=== PATIENT | female | born 1945 | race Caucasian/White ===

== ENCOUNTER → 2016-11-18 | Outpatient (CLI) | payer OTHER ==
--- NOTE | 2016-11-18 15:36 | DX ---
DEXA Bone Mineral Densitometry Clinical Indications: Postmenopausal, follow-up osteopenia, post hysterectomy, back pain, HRT x12 ye ars, screening for osteoporosis Comparison: May 14, 2013 (osteopenia) Technique: Bone Mineral Densitometry (BMD) by Dual Energy X-Ray Absorptiometry (DEXA) was performed utilizing the Lycera scanner. The lumbar spine was evaluated in the AP projection. The bilat eral hips and forearm were evaluated in the AP projection. Vertebral fracture assessment was also pe rformed. AP Lumbar Spine: The L1, L2, L3 and L4 vertebral bodies were evaluated. BMD: 1.013 gm/cm2 T-score: -1.5 SD Z-score: 0.5 SD No significant change. AP Left Hip: Total BMD: 0.787 gm/cm2 T-score: -1.7 SD Z-score: 0 SD No significant change. AP Right Hip: Neck BMD: 0.788 gm/cm2 T-score: -1.8 SD Z-score: 0.2 SD No significant change in total BMD AP Left Forearm, 10/19: BMD: 0.703 gm/cm2 T-score: -2.0 SD Z-score: 0 SD No significant change. Vertebral Fracture Assessment: No significant fracture deformity. No prevertebral aortic calcificati on, significant marginal bone spurring, facet arthrosis, or intrinsic vertebral body sclerosis that would effect the accuracy of the lumbar spine BMD measurement. Conclusion: Considering the lowest measured site, the patient has low bone density. The ten year FRAX risk for any major osteoporotic fracture is 10% and for a hip fracture is 2.1%. Any bone loss in this patient is probably related to aging or estrogen deficiency. To prevent osteoporosis and to promote the patient's bone density, the following recommendations shou ld be considered: 1. Pursue a regular regimen of weightbearing and muscle strengthening exercises in order to reduce t he risk of falls and fractures (as tolerated by the patient's general medical condition). 2. Ensure that daily dietary calcium uptake is maximized. 3. Consider checking the serum vitamin D level. Ensure that intake of vitamin D is 800 IU per day (f or ages 71 and older). 4. Consider follow-up DEXA scan in 3-4years to assess the rate of bone loss in this patient.
== END ==
LOC: FIMAGING 13:02
PROVIDERS: ATTEND Internal Medicine
DX: M85.80 Other specified disorders of bone density and structure, unspecified site (principal); E78.00 Pure hypercholesterolemia, unspecified; G47.33 Obstructive sleep apnea (adult) (pediatric); K31.9 Disease of stomach and duodenum, unspecified; M54.40 Lumbago with sciatica, unspecified side; R06.02 Shortness of breath; R07.2 Precordial pain; R53.83 Other fatigue

== ENCOUNTER → 2016-12-14 | Outpatient (CLI) | payer OTHER | LOC: FIMAGING 11:37 | PROVIDERS: ATTEND Internal Medicine | DX: J42 Unspecified chronic bronchitis (principal); K21.9 Gastro-esophageal reflux disease without esophagitis ==

== ENCOUNTER → 2017-02-16 | Outpatient (CLI) | payer OTHER | LOC: CIMAGING 07:54 | PROVIDERS: ATTEND Internal Medicine | DX: R10.10 Upper abdominal pain, unspecified (principal); R63.4 Abnormal weight loss; K76.89 Other specified diseases of liver; Z87.442 Personal history of urinary calculi | CPT/HCPCS: 76700-PO ==

== ENCOUNTER → 2017-03-18 | Outpatient (CLI) | payer OTHER | LOC: FIMAGING 13:44 | PROVIDERS: ATTEND Internal Medicine | DX: Z12.31 Encounter for screening mammogram for malignant neoplasm of breast (principal); Z80.3 Family history of malignant neoplasm of breast | CPT/HCPCS: G0202 ==

== ENCOUNTER 2017-08-26 14:19 | Observation (INO) | payer OTHER ==
[2017-08-26 14:59] LABS: % IMMATURE GRANULYOCYTES 0.9 % (0.0-1.1); ABSOLUTE IMMATURE GRANULOCYTES 0.06 10^3/uL (0.00-0.10); ADD DIFF? NO; ADD MORPH? NO; ADD SCAN? NO; ATYPICAL LYMPHOCYTE FLAG 0 (0-99); FRAGMENT RBC FLAG 0 (0-99); HEMOGLOBIN 13.3 g/dL (12.6-16.3); LEFT SHIFT FLG 0 (0-99); LIPEMIA HEMOLYSIS FLAG 90 (0-99); MEAN CELL HEMOGLOBIN 31.1 pg (27.9-34.1); MEAN CELL HEMOGLOBIN CONCENTR. 34.1 g/dL (32.4-36.7); MEAN CELL VOLUME 91.1 fL (81.5-99.8); MEAN PLATELET VOLUME 9.8 fL (8.7-11.7); PLATELET CLUMPS FLAG 0 (0-99); PLATELET COUNT 223 10^3/uL (150-400); RED BLOOD CELL COUNT 4.28 10^6/uL (4.18-5.33); RED CELL DISTRIBUTION WIDTH 12.3 % (11.5-15.2)
--- NOTE | 2017-08-26 14:59 | EDPHY ---
H & P Time Seen by Provider: 08/26/17 14:41 HPI/ROS: CHIEF COMPLAINT: Trouble speaking and right hand numbness HISTORY OF PRESENT ILLNESS: Patient was at lunch with her and they were talking about changing the die mechanic at 2:00 p.m. today when she had sudden onset of difficulty speaking and right hand numbness. The says she "was not fluent "with her speech and she describes having difficulty thinking of words to say. Symptoms are currently very mild but the numbness in her hand has completely resolved, and her difficulty speaking is almost completely resolved. Not associated with headache or vertigo or dizziness or trouble walking. REVIEW OF SYSTEMS: Eye: no change in vision ENT: no sore throat Cardiac: no chest pain or syncope Pulmonary: no cough or SOB Abdomen: no vomiting, diarrhea, abdominal pain Musculoskeletal: no back pain or neck pain Skin: no rash Neuro: HPI Constitutional: no fever : no urinary symptoms A comprehensive 10 point review of systems is otherwise negative aside from elements mentioned in the history of present illness. PAST MEDICAL HISTORY: GERD and high cholesterol, celiac Social history: With , no alcohol General Appearance: Alert and conversant, cooperative. Eyes: No scleral icterus. Extraocular motion intact and pupils equal and reactive. ENT, Mouth: Normal mucous membranes. Respiratory: Normal respiratory effort, breath sounds equal, lungs are clear to auscultation. Cardiovascular: Regular rate and rhythm. Gastrointestinal: Abdomen is soft and non tender. Neurological: Alert and oriented x3. Patient can name a pen and eyeglasses and has fluent speech. 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 Face symmetric, normal movement and sensation in all extremities. Negative for pronator drift, normal [id number] bilaterally. Skin: Warm and dry, no rashes. Musculoskeletal: No peripheral edema and no joint swelling. Psychiatric: Not agitated. Emergency Department course/MDM: Patient's symptoms have almost completely resolved, she has market rapid improvement and I think at this time I think it is not appropriate clinically for her to be a stroke alert as the potential benefit of Activase is outweighed by potential harm in a patient with rapid improvement of symptoms. CT, CT angiography, EKG, admission for TIA evaluation. CT and CTA negative for large vessel occlusion acute ischemia cranial mass or bleeding per Dr. Whatley. Discussed with Dr. Peralta at 3:58 p.m. Smoking Status: Never smoked Constitutional: Initial Vital Signs Temperature (C) 36.8 C 08/26/17 14:23 Heart Rate 93 08/26/17 14:23 Respiratory Rate 16 08/26/17 14:23 Blood Pressure 146/68 H 08/26/17 14:23 O2 Sat (%) 98 08/26/17 14:23 O2 Delivery Mode Room Air Allergies/Adverse Reactions: codeine Allergy (Verified 08/27/14 21:26) erythromycin base [Erythromycin Base] Allergy (Verified 08/27/14 12:52) gluten Allergy (Verified 08/26/17 14:22) Sulfa (Sulfonamide Antibiotics) Allergy (Verified 01/23/16 23:41) biactin Allergy (Uncoded 01/23/16 23:41) Home Medications: Medication Instructions Recorded Acetaminophen/ASA/Caffeine 1 tab PO DAILY PRN 08/27/14 [Excedrin Tablet (*)] Calcium Carb W/Vit D [Calcium Carb 500 mg PO DAILY 08/27/14 W/Vit D 500/200 (*)] Diazepam [Valium 5 MG (*)] 2.5 - 5 mg PO DAILY PRN 08/27/14 Estradiol [Estrace] 0.5 mg PO HS 08/27/14 Methylcellulose [Citrucel] 500 mg PO DAILY 08/27/14 Multivitamins [Multivitamin (*)] 1 tab PO DAILY 08/27/14 Omeprazole [Prilosec 20 mg] 20 mg PO HS 08/27/14 Atorvastatin Calcium [Lipitor 10 10 mg PO HS 01/24/16 mg (*)] Medical Decision Making - Diagnostics EKG Interpretation: 12-lead EKG interpreted by me; official reading is in trace master. My interpretation is sinus rhythm, no ischemic changes. Imaging Results: Imaging Impressions Head CT 08/26/17 14:51 Impression: 1. No significant intracranial abnormality seen. If symptoms worsen, additional imaging may be necessary. Findings discussed with SJ AARON at 1545 hour, 08/26/2017. Head CTA 08/26/17 14:52 Impression: 1. Normal CT angiogram of the neck. 2. Normal CT angiogram of the [place] with normal variation, as detailed above. 3. Mild focal narrowing left proximal posterior cerebral artery of questionable clinical significance. Note: All calculations were performed using NASCET criteria. Findings discussed with Sj Aaron M.D. at 15:45 hour, 08/26/2017. Neck CTA 08/26/17 14:[address]ression: [address] Normal [address] angiogram of the neck. 2. Normal CT angiogram of the [place] with normal variation, as detailed above. 3. Mild focal narrowing left proximal posterior cerebral artery of questionable clinical significance. Note: All calculations were performed using NASCET criteria. Findings discussed with Sj Aaron M.D. at 15:45 hour, 08/26/2017. Differential Diagnosis: Differential considered including but not limited to intracranial bleed, ischemic stroke, seizure, metabolic abnormality, TIA - Data Points Laboratory Results: Laboratory Results 08/26/17 14:45 08/26/17 14:45 08/26/17 08/26/17 08/26/17 14:45 14:45 14:45 WBC 6.66 10^3/uL 10^3/uL (3.80-9.50) RBC 4.28 10^6/uL 10^6/uL (4.18-5.33) Hgb 13.3 g/dL g/dL (12.6-16.3) Hct 39.0 % % (38.0-47.0) MCV 91.1 fL fL (81.5-99.8) MCH 31.1 pg pg (27.9-34.1) MCHC 34.1 g/dL g/dL (32.4-36.7) RDW 12.3 % % (11.5-15.2) Plt Count 223 10^3/uL 10^3/uL (150-400) MPV 9.8 fL fL (8.7-11.7) Neut % (Auto) 51.2 % % (39.3-74.2) Lymph % (Auto) 32.9 % % (15.0-45.0) [place] % (Auto) 7.7 % % (4.5-13.0) Eos % (Auto) 6.8 % % (0.6-7.6) Baso % (Auto) 0.5 % % (0.3-1.7) Nucleat RBC Rel Count 0.0 % % (0.0-0.2) Absolute Neuts (auto) 3.42 10^3/uL 10^3/uL (1.70-6.50) Absolute Lymphs (auto) 2.19 10^3/uL 10^3/uL (1.00-3.00) Absolute Monos (auto) 0.51 10^3/uL 10^3/uL (0.30-0.80) Absolute Eos (auto) 0.45 10^3/uL H 10^3/uL (0.03-0.40) Absolute Basos (auto) 0.03 10^3/uL 10^3/uL (0.02-0.10) Absolute Nucleated RBC 0.00 10^3/uL 10^3/uL (0-0.01) Immature Gran % 0.9 % % (0.0-1.1) Immature Gran # 0.06 10^3/uL 10^3/uL (0.00-0.10) PT 12.9 SEC SEC (12.0-15.0) INR 0.98 (0.83-1.16) Sodium 141 mEq/L mEq/L (134-144) Potassium 3.3 mEq/L L mEq/L (3.5-5.2) Chloride 104 mEq/L mEq/L (97-110) Carbon Dioxide 23 mEq/l mEq/l (22-31) Anion Gap 14 mEq/L mEq/L (8-16) BUN 14 mg/dL mg/dL (7-23) Creatinine 1.0 mg/dL mg/dL (0.6-1.0) Estimated GFR 55 Glucose 111 mg/dL H mg/dL (70-100) Calcium 9.9 mg/dL mg/dL (8.5-10.4) Troponin I < 0.012 ng/mL ng/mL (0.000-0.034) Medications Given: Acetaminophen (Tylenol) 650 mg PO Q4HRS PRN PRN Reason: Pain, Mild/Fever, Can Take PO Stop: 18 16:05 Last Admin: 08/26/17 18:24 Dose: 650 mg Discontinued Medications Potassium Chloride (Klor-Con) 20 meq PO ONCE ONE Stop: 08/26/17 18:46 Last Admin: 08/26/17 18:59 Dose: 20 meq Departure - Departure Disposition: [facility] Clinical Impression: Transient cerebral ischemia Qualifiers: Transient cerebral ischemia type: unspecified Qualified Code(s): G45.9 - Transient cerebral ischemic attack, unspecified Condition: Good
[2017-08-26 15:04] LABS: ANION GAP 14 mEq/L (8-16); CALCIUM 9.9 mg/dL (8.5-10.4); CARBON DIOXIDE 23 mEq/l (22-31); CHLORIDE 104 mEq/L (97-110); GLOMERULAR FILTRATION RATE 55; GLUCOSE 111 mg/dL (70-100); INR 0.98 (0.83-1.16); POTASSIUM 3.3 mEq/L (3.5-5.2); PROTIME(PATIENT) 12.9 SEC (12.0-15.0); SODIUM 141 mEq/L (134-144)
[2017-08-26] MEDS ORDERED: IOPAMIDOL (ISOVUE 370) 100 ML BTL IV ONE (15:07)
[2017-08-26 15:14] LABS: TROPONIN I < 0.012 ng/mL (0.000-0.034)
--- NOTE | 2017-08-26 15:54 | CPEKG ---
Heart Rate: 99 RR Interval: 606 P-R Interval: 132 QRSD Interval: 86 QT Interval: 352 QTC Interval: 452 P [place]: 42 QRS [place]: 10 T Wave [place]: 12 EKG Severity - BORDERLINE ECG - EKG Impression: SINUS RHYTHM EKG Impression: BORDERLINE T ABNORMALITIES, ANTERIOR LEADS Electronically Signed By: Kraig Jackson 26-Aug-2017 16:38:24
[2017-08-26] MEDS ORDERED: ONDANSETRON 4 MG/2 ML VIAL IVP PRN (16:06)
[2017-08-26] MEDS ORDERED: ALBUTEROL 3 ML DEYVIAL IH PRN (16:06)
[2017-08-26] MEDS ORDERED: ONDANSETRON DISINTEGRATING 4 MG TAB PO PRN (16:06)
[2017-08-26] MEDS ORDERED: PROTOCOL MAGNESIUM 1 DOSE IV PRN (16:09)
[2017-08-26] MEDS ORDERED: PROTOCOL POTASSIUM 1 DOSE MISC PRN ×2 (16:09)
[2017-08-26] MEDS ORDERED: POTASSIUM CL 20 MEQ/15 ML UDCUP PO ONE ×2 (16:11→18:45)
[2017-08-26] MEDS ORDERED: ACETAMINOPHEN/ASA/CAFFEINE 1 EACH TAB PO PRN (16:37)
[2017-08-26] MEDS ORDERED: DIAZEPAM 5 MG TAB PO PRN (16:41)
[2017-08-26] MEDS ORDERED: LORazepam 2 MG/ML INJ IVP ONE ×2 (16:42→19:30)
--- NOTE | 2017-08-26 16:50 | PDGENHP ---
History and Physical - Chief Complaint ?TIA - History of Present Illness 71 yo female had sudden onset of difficulty speaking and right hand numbness while eating with her this afternoon. Presented to the E.D. Most of her sx's had resolved by the time she arrived to the E.D. She no longer had hand numbness, memory was improving. She reports that she still have some deficits. Symptoms Not associated with headache or vertigo or dizziness or trouble walking. In the ED w/u to include CT Brain, CTA head, CTA neck unremarkable. She has no hx of TIA/Stroke. She denies any focal weakness. She does report a hx of Trigeminy. No hx of Afib. PAST MEDICAL HISTORY: GERD and high cholesterol, celiac, anxiety PAST SURGICA HISTORY: Hysterectomy Social history: Never smoked. social ETOH FMhx: NC History Information - Allergies/Home Medication List Allergies/Adverse Reactions: codeine Allergy (Verified 08/27/14 21:26) erythromycin base [Erythromycin Base] Allergy (Verified 08/27/14 12:52) gluten Allergy (Verified 08/26/17 14:22) Sulfa (Sulfonamide Antibiotics) Allergy (Verified 01/23/16 23:41) biactin Allergy (Uncoded 01/23/16 23:41) Home Medications: Acetaminophen/ASA/Caffeine [Excedrin Tablet (*)] 1 tab PO DAILY PRN 08/27/14 [ Last Taken 08/26/17 10:00] Calcium Carb W/Vit D [Calcium Carb W/Vit D 500/200 (*)] 500 mg PO DAILY [Last Taken 08/26/17] Diazepam [Valium 5 MG (*)] 2.5 - 5 mg PO DAILY PRN 08/27/14 [Last Taken 08/25/17 ] Estradiol [Estrace] 0.5 mg PO HS 08/27/14 [Last Taken 08/25/17] Methylcellulose [Citrucel] 500 mg PO DAILY 08/27/14 [Last Taken 08/26/17] Multivitamins [Multivitamin (*)] 1 tab PO DAILY 08/27/14 [Last Taken 08/26/17] Omeprazole [Prilosec 20 mg] 20 mg PO HS 08/27/14 [Last Taken 08/25/17] Atorvastatin Calcium [Lipitor 10 mg (*)] 10 mg PO HS 01/24/16 [Last Taken ] I have personally reviewed and updated: medical history, social history - Social History Smoking Status: Never smoked Review of Systems Review of Systems: ROS: 10pt was reviewed & negative except for what was stated in HPI & below Physical Exam Physical Exam: Temp Pulse Resp BP Pulse Ox 36.8 C 93 16 146/68 H 98 08/26/17 14:23 08/26/17 14:23 08/26/17 14:23 08/26/17 14:23 08/26/17 14:23 Constitutional: no apparent distress, appears nourished Eyes: PERRL, EOMI Ears, Nose, Mouth, Throat: moist mucous membranes Cardiovascular: regular rate and rhythym, No JVD, No edema Respiratory: no respiratory distress, no rales or rhonchi, clear to auscultation Gastrointestinal: normoactive bowel sounds, soft, non-tender abdomen Skin: warm Musculoskeletal: No generalized weakness Neurologic: AAOx3, CN II-XII Intact, No weakness, No numbness, No facial droop Psychiatric: interacting appropriately, not anxious, not encephalopathic, thought process linear Lab Data & Imaging Review 08/26/17 14:45 08/26/17 14:45 WBC 6.66 10^3/uL (3.80-9.50) 08/26/17 14:45 RBC 4.28 10^6/uL (4.18-5.33) 08/26/17 14:45 Hgb 13.3 g/dL (12.6-16.3) 08/26/17 14:45 Hct 39.0 % (38.0-47.0) 08/26/17 14:45 MCV 91.1 fL (81.5-99.8) 08/26/17 14:45 MCH 31.1 pg (27.9-34.1) 08/26/17 14:45 MCHC 34.1 g/dL (32.4-36.7) 08/26/17 14:45 RDW 12.3 % (11.5-15.2) 08/26/17 14:45 Plt Count 223 10^3/uL (150-400) 08/26/17 14:45 MPV 9.8 fL (8.7-11.7) 08/26/17 14:45 Neut % (Auto) 51.2 % (39.3-74.2) 08/26/17 14:45 Lymph % (Auto) 32.9 % (15.0-45.0) 08/26/17 14:45 [place] % (Auto) 7.7 % (4.5-13.0) 08/26/17 14:45 Eos % (Auto) 6.8 % (0.6-7.6) 08/26/17 14:45 Baso % (Auto) 0.5 % (0.3-1.7) 08/26/17 14:45 Nucleat RBC Rel Count 0.0 % (0.0-0.2) 08/26/17 14:45 Absolute Neuts (auto) 3.42 10^3/uL (1.70-6.50) 08/26/17 14:45 Absolute Lymphs (auto) 2.19 10^3/uL (1.00-3.00) 08/26/17 14:45 Absolute Monos (auto) 0.51 10^3/uL (0.30-0.80) 08/26/17 14:45 Absolute Eos (auto) 0.45 10^3/uL (0.03-0.40) H 08/26/17 14:45 Absolute Basos (auto) 0.03 10^3/uL (0.02-0.10) 08/26/17 14:45 Absolute Nucleated RBC 0.00 10^3/uL (0-0.01) 08/26/17 14:45 Immature Gran % 0.9 % (0.0-1.1) 08/26/17 14:45 Immature Gran # 0.06 10^3/uL (0.00-0.10) 08/26/17 14:45 PT 12.9 SEC (12.0-15.0) 08/26/17 14:45 INR 0.98 (0.83-1.16) 08/26/17 14:45 Sodium 141 mEq/L (134-144) 08/26/17 14:45 Potassium 3.3 mEq/L (3.5-5.2) L 08/26/17 14:45 Chloride 104 mEq/L (97-110) 08/26/17 14:45 Carbon Dioxide 23 mEq/l (22-31) 08/26/17 14:45 Anion Gap 14 mEq/L (8-16) 08/26/17 14:45 BUN 14 mg/dL (7-23) 08/26/17 14:45 Creatinine 1.0 mg/dL (0.6-1.0) 08/26/17 14:45 Estimated GFR 55 08/26/17 14:45 Glucose 111 mg/dL (70-100) H 08/26/17 14:45 Calcium 9.9 mg/dL (8.5-10.4) 08/26/17 14:45 Troponin I < 0.012 ng/mL (0.000-0.034) 08/26/17 14:45 Assessment & Plan Assessment: #?TIA #Anxiety disorder #Hypokalemia #HLD Plan: admit monitor overnight telemetry TTE MRI Brain, will provide ativan just prior home meds Aspirin check risk factors PT/OT Ok to eat SCD's Full code
[2017-08-26] MEDS: ACETAMINOPHEN 325 MG TAB PO PRN (18:24)
[2017-08-26] MEDS ORDERED: POTASSIUM CL 10 MEQ TAB PO ONE (18:45)
[2017-08-26] MEDS ORDERED: GADOBUTROL 10 ML VIAL IVP ONE (20:06)
[2017-08-26] MEDS ORDERED: ATORVASTATIN CALCIUM 10 MG TAB PO SCH (21:00)
[2017-08-26] MEDS ORDERED: PANTOPRAZOLE SODIUM 40 MG TAB PO SCH (21:00)
[2017-08-26 21:34] LABS: MAGNESIUM 1.7 mg/dL (1.6-2.3); POTASSIUM 3.8 mEq/L (3.5-5.2)
[2017-08-27 05:02] LABS: % IMMATURE GRANULYOCYTES 0.3 % (0.0-1.1); ABSOLUTE IMMATURE GRANULOCYTES 0.02 10^3/uL (0.00-0.10); ADD DIFF? NO; ADD MORPH? NO; ADD SCAN? NO; ATYPICAL LYMPHOCYTE FLAG 0 (0-99); FRAGMENT RBC FLAG 0 (0-99); HEMATOCRIT 37.7 % (38.0-47.0); HEMOGLOBIN 13.3 g/dL (12.6-16.3); LEFT SHIFT FLG 0 (0-99); LIPEMIA HEMOLYSIS FLAG 90 (0-99); MEAN CELL HEMOGLOBIN 32.2 pg (27.9-34.1); MEAN CELL HEMOGLOBIN CONCENTR. 35.3 g/dL (32.4-36.7); MEAN CELL VOLUME 91.3 fL (81.5-99.8); MEAN PLATELET VOLUME 9.8 fL (8.7-11.7); PLATELET CLUMPS FLAG 0 (0-99); PLATELET COUNT 205 10^3/uL (150-400); RED BLOOD CELL COUNT 4.13 10^6/uL (4.18-5.33); RED CELL DISTRIBUTION WIDTH 12.4 % (11.5-15.2)
[2017-08-27 05:12] LABS: ANION GAP 8 mEq/L (8-16); CALCIUM 9.5 mg/dL (8.5-10.4); CARBON DIOXIDE 26 mEq/l (22-31); CHLORIDE 106 mEq/L (97-110); CHOLESTEROL 196 mg/dL (140-220); CHOLESTEROL/HDL RATIO 2.02 RATIO (1.00-4.44); CREATININE 0.9 mg/dL (0.6-1.0); GLOMERULAR FILTRATION RATE > 60; GLUCOSE 86 mg/dL (70-100); HIGH DENSITY LIPOPROTEIN 97 mg/dL (40-85); LOW DENSITY LIPOPROTEIN 87 mg/dL (80-100); MAGNESIUM 1.9 mg/dL (1.6-2.3); NON-HIGH DENSITY LIPOPROTEIN 99 mg/dL (90-129); POTASSIUM 3.9 mEq/L (3.5-5.2); SODIUM 140 mEq/L (134-144); TRIGLYCERIDE 61 mg/dL (35-135); VERY LOW DENSITY LIPOPROTEINS 12 mg/dL (8-25)
[2017-08-27 08:03] VITALS: TEMP 98.6
[2017-08-27] MEDS: ACETAMINOPHEN 325 MG TAB PO PRN (08:19)
[2017-08-27] MEDS ORDERED: CALCIUM CARB W/VIT D 500 MG TAB PO SCH (09:00)
--- NOTE | 2017-08-27 10:03 | ECHO ---
[email or web address] [address] [address] Main: [phone] Fax: Transthoracic Echocardiogram Name: MARLA JOSE MR#: [id number] Study Date: 08/27/2017 Study Time: 08:23 AM Date of : 1945 Age: 71 year(s) Height: 167.6 cm (66 in.) Weight: 56.7 kg (125 lb.) BSA: 1.64 m2 Gender: Female Examination: Echo Indication: TIA Image Quality: Contrast: Requested by: Renny Garcia BP: 133 mmHg/69 mmHg Heart Rate: Rhythm: Indication: TIA Procedure Staff Instructor [employer]: Laurie Minaya Physician: Dinh Hammond Requesting Provider: Conclusions: 1)Normal LV size and systolic function with a LVEF of 63% and normal wall motions. 2)Mild diastolic dysfunction noted. 3)MIld MR without MV prolapse. 4)Mild TR with estimated normal PA pressures. 5)Small anterior pericardial fat pad noted. Measurements: Chambers Valvular Assessment AV/MV Valvular Assessment TV/PV Normal Normal Normal Name Value Range Name Value Range Name Value Range Ao Remedios (MM): 2.6 cm (2.2 cm-3.7 AV Vmax: 1.26 m/s (1 m/s-1.7 TR Vmax: 2.28 mm/s ( - ) cm) m/s) TR PGmax: 21 mmHg ( - ) IVSd (2D): 0.7 cm (0.6 cm-1.1 AV maxP mmHg ( - ) syst. PAP: 26 mmHg ( - ) cm) MV E Vmax: 0.70 m/s ( - ) LVDd (2D): 4.1 cm (3.9 cm-5.3 MV A Vmax: 0.79 m/s ( - ) cm) MV E/A: 0.89 ( - ) LVDs (2D): 2.3 cm (2.1 cm-4 cm) LVPWd (2D): 0.7 cm ( - ) LVEF (MOD4): 63 % (>=55 %) Continued Measurements: Chambers Valvular Assessment AV/MV Valvular Assessment TV/PV Name Value Name Value Name Value LADs: 3.1 cm MV E/E' Septal: 10.20 CVP (est.): 5 mmHg LADs Lon.9 cm MV E/E' Lateral: 9.40 LA Area: 15.9 cm2 Patient: MARLA JOSE Study Date: 08/27/2017 Page 1 of 2 08:23 AM Additional Vessels Name Value Ao Ascendin.9 cm Findings: Left Ventricle: Normal size left ventricle. No LV hypertrophy. Normal global systolic LV function. EF is 63 %. No regional wall motion abnormality. Grade 1 diastolic dysfunction (abnormal relaxation). Right Ventricle: Normal size right ventricle. Left Atrium: The left atrium is normal in size. Right Atrium: The right atrium is normal in size. Mitral Valve: The mitral valve is normal in appearance and function. Mild mitral valve regurgitation is present. Aortic Valve: The aortic valve is normal in appearance and function. Tricuspid Valve: The tricuspid valve is normal in appearance and function. Mild tricuspid regurgitation is present. Pulmonic Valve: The pulmonic valve is normal in appearance and function. Aorta: The aorta is normal. Pericardium: Trace anterior pericardial effusion versus fat pad. (No Signature Object) Patient: MARLA JOSE Study Date: 08/27/2017 Page 2 of 2 08:23 AM [id number]
--- NOTE | 2017-08-27 10:30 | HOSPPROG ---
Hospitalist Progress Note Assessment/Plan: 71 yo female admitted for likely TIA. She presented with difficulty speaking, memory deficits, and right hand numbness. There was no associated CORDERO. All symptoms have resolved. W/u has been negative to include CT and CTA Brain/Neck, MRI brain. EKG and tele unremarkable. TTE is pending. She has a hx of chronic CORDERO's and has been on numerous agents previously. She takes Excedrin intermittently between 1-4 pills on most day, although there are days when she takes none. Each Excedrin tab contains 250mg of Aspiring. They are requesting Neuro consult for further discussion of CORDERO management and to determine ongoing management for possible TIA. #?TIA #Anxiety disorder #Hypokalemia, resolved #HLD, LDL at target Plan: -Neuro consult -await TTE -anticipate discharge today -PT/OT -SCD's -Full code Subjective: No further symptoms. No neuro deficits. She is requesting a Neuro eval. No CORDERO. No hand numbness Objective: Vital Signs Temp Pulse Resp BP Pulse Ox 37 C 90 14 120/59 L 95 08/27/17 08:02 08/27/17 10:09 08/27/17 08:02 08/27/17 10:09 08/27/17 08:02 Laboratory Results 08/27/17 04:17 08/27/17 04:17 PT 12.9 SEC (12.0-15.0) 08/26/17 14:45 INR 0.98 (0.83-1.16) 08/26/17 14:45 - Physical Exam Constitutional: no apparent distress, appears nourished Eyes: PERRL, EOMI Ears, Nose, Mouth, Throat: moist mucous membranes, hearing normal, ears appear normal Cardiovascular: regular rate and rhythym, no murmur, rub, or gallop Respiratory: no respiratory distress, no rales or rhonchi, clear to auscultation Gastrointestinal: normoactive bowel sounds, soft, non-tender abdomen Genitourinary: no bladder fullness Skin: warm Neurologic: AAOx3, CN II-XII Intact, No facial droop Psychiatric: interacting appropriately, not anxious, not encephalopathic, thought process linear ICD10 Worksheet Patient Problems: Problems Problem Status Onset Transient cerebral ischemia Acute Paresthesias Acute
[2017-08-27] MEDS ORDERED: POTASSIUM CL 10 MEQ TAB PO ONE (10:44)
[2017-08-27 11:49] VITALS: BP 108/61; PULSE 73; RESP 16; O2SAT 96
--- NOTE | 2017-08-27 11:49 | NEUROPROG ---
Assessment: [id number] CC: Speech disturbance HPI: Pt with sudden onset difficulty speaking on 08/26/17 and right hand numbness that last a few hours and then resolved. Brain MRI, CTA head/neck, telemetry, and TTE all unremarkable. Pt with chronic headache disorder so I suspect this was likely an atypical migraine but atypical TIA is also possible. Generally if a patient has neurologic deficits for hours from a lack of blood flow in the brain you would expect to see a stroke on MRI so that makes me think TIA is less likely but possible. I agree with the plan to start daily aspirin and have her f/u in 1-2 weeks to assess response to headaches. She may need a long- term prophylaxis at that time if headaches not better. Headaches have occurred for years on a daily basis. She sees Dr. Keene (neurology) for the headaches. PMHx: GERD, HLD, celiac disease, anxiety, chronic headaches Home Meds: valium, estrace, omeprazole, lipitor 10 mg qd SHx: no tobacco FHx: NC ROS: Pt denied acute fever, total vision loss, active severe chest pain, respiratory failure, total body severe rash, total bowel/bladder incontinence, psychosis, active seizures, or active bleeding O: VS reviewed General: Alert Eyes: Fundoscopic exam not able to visualize optic disks CV: Heart RRR, no murmur, no carotid bruit Lungs: Clear to auscultation bilaterally, no rhonci or rales Neuro: - Mental: . Oriented x person/place/date . concentration appears normal . speech fluency/comprehension normal . memory appears normal . fund of knowledge appear intact - Cranial Nerves: . II: PERRL, VFFTC . III/IV/: EOMI, no nystagmus, normal smooth pursuits, no Ptosis . V: facial sensation intact to LT . VII: face symmetric to eye closure and smile . VIII: hearing intact to conversation . IX/X: uvula raises symmetrically . XI: SCM 5/5 B/L strength . XII: tongue protrudes midline w/nl strength - Motor: . Tone: normal tone in all 4 extrem . 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 Complex Migraine: Pt with sudden onset difficulty speaking on 08/26/17 and right hand numbness that last a few hours and then resolved. Brain MRI, CTA head/neck, telemetry, and TTE all unremarkable. Pt with chronic headache disorder so I suspect this was likely an atypical migraine but atypical TIA is also possible. Generally if a patient has neurologic deficits for hours from a lack of blood flow in the brain you would expect to see a stroke on MRI so that makes me think TIA is less likely but possible. I agree with the plan to start daily aspirin and have her f/u in 1-2 weeks to assess response to headaches. 2. Chronic Migraine Headaches: Avg 30 days/month for years. Plan: - Start aspirin 81 mg qd (cover small chance of atypical TIA and hopefully help with chronic migraines) - F/U 1-[address] Vazquez in neurology clinic, consider additional headache prophylaxis at that time if needed Neurology will sign off. Objective: Vital Signs Temp Pulse Resp BP Pulse Ox 37 C 90 14 120/59 L 95 08/27/17 08:02 08/27/17 10:09 08/27/17 08:02 08/27/17 10:09 08/27/17 08:02 Laboratory Results 08/27/17 04:17 08/27/17 04:17 PT 12.9 SEC (12.0-15.0) 08/26/17 14:45 INR 0.98 (0.83-1.16) 08/26/17 14:45 Allergies/Adverse Reactions: codeine Allergy (Verified 08/27/14 21:26) erythromycin base [Erythromycin Base] Allergy (Verified 08/27/14 12:52) gluten Allergy (Verified 08/26/17 14:22) Sulfa (Sulfonamide Antibiotics) Allergy (Verified 01/23/16 23:41) biactin Allergy (Uncoded 01/23/16 23:41)
--- NOTE | 2017-08-27 12:19 | PDDCSUM ---
Discharge Summary Discharge Summary: 71 yo female admitted for likely atypical TIA vs complex migraine. She presented with difficulty speaking, memory deficits, and right hand numbness. There was no associated CORDERO. All symptoms have resolved. W/u has been negative to include CT and CTA Brain/Neck, MRI brain. EKG and tele unremarkable. Neuro evaluated the patient and cleared her. She will be started on Aspirin 81mg daily. She will f/u with Dr. Vazquez in 1-2 weeks. DDX #?TIA vs complex CORDERO #Anxiety disorder #Hypokalemia, resolved #HLD, LDL at target PE: see progress note from today Meds: Aspirin 81mg started. cont all other home meds total time spent on discharge is 35 minutes
--- NOTE | 2017-08-27 14:41 | ASDISCHSUM ---
Discharge Information Plan Status:Home with No Needs Medically Cleared to Leave:08/26/2017 Discharge Date:08/27/2017 12:52 PM D/C Disposition: ADT D/C Disposition:Home, Routine, Self-Care Projected Discharge Date:08/27/2017 12:00 AM Transportation at D/C: Discharge Delay Reason: Follow-Up Date:08/27/2017 12:00 AM Discharge Slot: Final Diagnosis: Placement Information Patient Contact Information Contact Name:CATALINO Relationship: Address:[address] City:[place] Alternate Phone: State/Zip Code:[place] [address] Email: Financial Information Financial Class: Primary Plan Desc:MEDICARE OUTPATIENT Primary Plan Number:[id number] Secondary Plan Desc:[facility] [employer] INSURANCE Secondary Plan Number:[id number] Assessment Information LACE LACE Length of stay for Answers: Less than 1 day current admission Acuity / Level of Care Answers: Was the patient admitted to hospital via the emergency department? Yes: Emergency dept visits in Answers: 1 last 6 months Score: 4 Date Signed: 08/26/2017 04:45 PM Electronically Signed By:Khushbu Aguillon RN Intervention Information
[2017-08-29 02:27] LABS: HEMOGLOBIN A1C 5.3 % (4.0-6.0)
== END 2017-08-27 12:52 | disposition home or self-care (01) ==
LOC: F3N 17:47
PROVIDERS: ADMIT Internal Medicine; ATTEND Internal Medicine
DX: G45.9 Transient cerebral ischemic attack, unspecified (principal); K21.9 Gastro-esophageal reflux disease without esophagitis; E78.00 Pure hypercholesterolemia, unspecified; K90.0 Celiac disease
CPT/HCPCS: 70450; 70496; 70498; 70553; 93005; 93306; 97161; 97165; A9585; G0378; G8978; G8979; G8980; G8987; G8988; G8989; J2060; Q9967

== ENCOUNTER 2018-03-19 20:16 | Emergency (ER) | payer OTHER ==
--- NOTE | 2018-03-19 20:26 | EDPHY ---
H & P Time Seen by Provider: 03/19/18 20:18 HPI/ROS: CHIEF COMPLAINT: Difficulty recalling names HISTORY OF PRESENT ILLNESS: The patient presents the emergency department with her . She has had a 2 hr history of difficulty recalling names. She was unable to remember the name of her children and grandchildren earlier today. The patient does have a history of chronic intermittent headaches. She was having a mild headache earlier today which has improved. The patient did endorse some symptoms of paresthesias in her bilateral fingers earlier today this is also improved. The patient denies prior history of stroke or TIA. The patient denies any additional acute complaints. The patient was hospitalized in 2016 for evaluation of paresthesias in headache. At that time she had an extensive evaluation including a unremarkable CT, CTA and brain MRI. She was seen in consultation by Neurology who felt the patient's symptoms were secondary to complex migraine and possibly anxiety. REVIEW OF SYSTEMS: A comprehensive 10 point review of systems is otherwise negative aside from elements mentioned in the history of present illness. Source: Patient - Personal History Tetanus Vaccine Date: <10 years - Medical/Surgical History Hx Asthma: No Hx Chronic Respiratory Disease: No Hx Diabetes: No Hx Cardiac Disease: No Hx Renal Disease: No Hx Cirrhosis: No Hx Alcoholism: No Hx HIV/AIDS: No Hx Splenectomy or Spleen Trauma: No Other PMH: GERD, HIGH CHOLESTEROL, trigeminy, celiac, tia, - Social History Smoking Status: Never smoked - Physical Exam Exam: General Appearance: Alert, no distress Eyes: Pupils equal and round no pallor or injection ENT, Mouth: Mucous membranes moist Respiratory: There are no retractions, lungs are clear to auscultation Cardiovascular: Regular rate and rhythm Gastrointestinal: Abdomen is soft and nontender, no masses, bowel sounds normal Neurological: A&O, normal motor function, normal sensory exam, normal cranial nerves, able to recall names of children but not grandchildren, speech fluent Skin: Warm and dry, no rashes Musculoskeletal: Neck is supple nontender Extremities: symmetrical, full range of motion Psychiatric: Patient is oriented X 3, there is no agitation Constitutional: Initial Vital Signs Temperature (C) 36.8 C 03/19/18 20:20 Heart Rate 100 03/19/18 20:20 Respiratory Rate 18 03/19/18 20:20 Blood Pressure 157/76 H 03/19/18 20:20 O2 Sat (%) 97 03/19/18 20:20 O2 Delivery Mode Room Air Allergies/Adverse Reactions: codeine Allergy (Verified 03/19/18 20:33) erythromycin base [Erythromycin Base] Allergy (Verified 03/19/18 20:33) gluten Allergy (Verified 03/19/18 20:33) Sulfa (Sulfonamide Antibiotics) Allergy (Verified 01/23/16 23:41) biactin Allergy (Uncoded 03/19/18 20:33) Home Medications: Medication Instructions Recorded Acetaminophen/ASA/Caffeine 1 tab PO DAILY PRN 08/27/14 [Excedrin Tablet (*)] Calcium Carb W/Vit D [Calcium Carb 500 mg PO DAILY 08/27/14 W/Vit D 500/200 (*)] Diazepam [Valium 5 MG (*)] 2.5 - 5 mg PO DAILY PRN 08/27/14 Estradiol [Estrace] 0.5 mg PO HS 08/27/14 Methylcellulose [Citrucel] 500 mg PO DAILY 08/27/14 Multivitamins [Multivitamin (*)] 1 tab PO DAILY 08/27/14 Omeprazole [Prilosec 20 mg] 20 mg PO HS 08/27/14 Atorvastatin Calcium [Lipitor 10 10 mg PO HS 01/24/16 mg (*)] Aspirin EC [Aspirin EC 81 mg (*)] 81 mg PO DAILY #30 tab 08/27/17 Medical Decision Making - Diagnostics Imaging Results: Imaging Impressions Head CT 03/19/18 20:41 Impression: 1. Mild atrophy. 2. No acute hemorrhage, hydrocephalus, or mass effect. 3. Cerebrovascular atherosclerosis. 4. No definite acute infarct. 5. Mild microvascular ischemic gliosis. 6. Consider MRI of the brain, if there is continued clinical concern. Findings and recommendations discussed with Emergency Department physician, Rajinder Lentz at 21:12 hour, 03/19/2018. Final report concurs with initial preliminary interpretation. Brain MRI: No evidence of an acute infarct, microvascular changes noted. Images reviewed by myself and discussed with radiologist Dr. Bean ED Course/Re-evaluation: The patient presents to the ED with difficulty recalling names. The patient does have a history of complex migraines. I find her NIH stroke scale to be 0. The patient did have some improvement of her recollection of names while in the emergency department. She continued to have difficulty remembering the names of her grandchildren. She was taken for a stat noncontrast head CT scan which demonstrated no evidence of intracranial hemorrhage or mass or obvious stroke. Given the patient's age in atypical nature of her symptoms an MRI of the brain was obtained to evaluate for atypical ischemic event. Additional workup included a normal CBC, serum chemistries and urinalysis. Brain MRI demonstrates no evidence of an acute infarct. She does have mild atrophy and microvascular changes noted. The patient was re-evaluated at 10:30 p.m. She is now able to recall the name of her grandchildren. The patient has seen Dr. Keene for evaluation of her headaches before in the past and is comfortable following up with him. Her neurologic examination remains normal. Differential Diagnosis: Differential diagnosis considered includes complex migraine, transient global amnesia, ischemic stroke, hemorrhagic stroke, [employer] mass - Data Points Laboratory Results: Laboratory Results 03/19/18 20:25 03/19/18 20:25 03/19/18 03/19/18 03/19/18 21:30 20:33 20:25 WBC RBC Hgb POC Hgb 13.6 gm/dL gm/dL (12.6-16.3) Hct POC Hct 40 % % (38-47) MCV MCH MCHC RDW Plt Count MPV Neut % (Auto) Lymph % (Auto) Parmer % (Auto) Eos % (Auto) Baso % (Auto) Nucleat RBC Rel Count Absolute Neuts (auto) Absolute Lymphs (auto) Absolute Monos (auto) Absolute Eos (auto) Absolute Basos (auto) Absolute Nucleated RBC Immature Gran % Immature Gran # POC Sodium 141 mEq/L mEq/L (135-145) Sodium 141 mEq/L mEq/L (135-145) POC Potassium 3.3 mEq/L mEq/L (3.3-5.0) Potassium 3.6 mEq/L mEq/L (3.3-5.0) POC Chloride 105 mEq/L mEq/L (97-110) Chloride 106 mEq/L mEq/L (97-110) Carbon Dioxide 24 mEq/l mEq/l (22-31) Anion Gap 11 mEq/L mEq/L (8-16) POC BUN 21 mg/dL mg/dL (7-23) BUN 21 mg/dL mg/dL (7-23) Creatinine 1.0 mg/dL mg/dL (0.6-1.0) POC Creatinine 1.1 mg/dL H mg/dL (0.6-1.0) Estimated GFR 54 Glucose 114 mg/dL H mg/dL (70-100) POC Glucose 122 mg/dL H mg/dL (70-100) Calcium 10.0 mg/dL mg/dL (8.5-10.4) Urine Color YELLOW Urine Appearance HAZY Urine pH 5.0 (5.0-7.5) Ur Specific [place] 1.021 (1.002-1.030) Urine Protein NEGATIVE (NEGATIVE) Urine Ketones NEGATIVE (NEGATIVE) Urine Blood NEGATIVE (NEGATIVE) Urine Nitrate NEGATIVE (NEGATIVE) Urine Bilirubin NEGATIVE (NEGATIVE) Urine Urobilinogen NEGATIVE EU EU (0.2-1.0) Ur Leukocyte Esterase NEGATIVE (NEGATIVE) Urine Glucose NEGATIVE (NEGATIVE) 03/19/18 20:25 WBC 6.62 10^3/uL 10^3/uL (3.80-9.50) RBC 4.20 10^6/uL 10^6/uL (4.18-5.33) Hgb 13.1 g/dL g/dL (12.6-16.3) POC Hgb Hct 38.3 % % (38.0-47.0) POC Hct MCV 91.2 fL fL (81.5-99.8) MCH 31.2 pg pg (27.9-34.1) MCHC 34.2 g/dL g/dL (32.4-36.7) RDW 13.2 % % (11.5-15.2) Plt Count 233 10^3/uL 10^3/uL (150-400) MPV 10.0 fL fL (8.7-11.7) Neut % (Auto) 59.8 % % (39.3-74.2) Lymph % (Auto) 27.9 % % (15.0-45.0) Parmer % (Auto) 7.9 % % (4.5-13.0) Eos % (Auto) 3.9 % % (0.6-7.6) Baso % (Auto) 0.3 % % (0.3-1.7) Nucleat RBC Rel Count 0.0 % % (0.0-0.2) Absolute Neuts (auto) 3.96 10^3/uL 10^3/uL (1.70-6.50) Absolute Lymphs (auto) 1.85 10^3/uL 10^3/uL (1.00-3.00) Absolute Monos (auto) 0.52 10^3/uL 10^3/uL (0.30-0.80) Absolute Eos (auto) 0.26 10^3/uL 10^3/uL (0.03-0.40) Absolute Basos (auto) 0.02 10^3/uL 10^3/uL (0.02-0.10) Absolute Nucleated RBC 0.00 10^3/uL 10^3/uL (0-0.01) Immature Gran % 0.2 % % (0.0-1.1) Immature Gran # 0.01 10^3/uL 10^3/uL (0.00-0.10) POC Sodium Sodium POC Potassium Potassium POC Chloride Chloride Carbon Dioxide Anion Gap POC BUN BUN Creatinine POC Creatinine Estimated GFR Glucose POC Glucose Calcium Urine Color Urine Appearance Urine pH Ur Specific Deridder Urine Protein Urine Ketones Urine Blood Urine Nitrate Urine Bilirubin Urine Urobilinogen Ur Leukocyte Esterase Urine Glucose Medications Given: Discontinued Medications Lorazepam (Ativan Injection) 1 mg IVP EDNOW ONE Stop: 03/19/18 21:42 Last Admin: 03/19/18 21:42 Dose: 1 mg Point of Care Test Results: Chemistry 03/19/18 20:33 POC Sodium 141 mEq/L mEq/L (135-145) POC Potassium 3.3 mEq/L mEq/L (3.3-5.0) POC Chloride 105 mEq/L mEq/L (97-110) POC BUN 21 mg/dL mg/dL (7-23) POC Creatinine 1.1 mg/dL H mg/dL (0.6-1.0) POC Glucose 122 mg/dL H mg/dL (70-100) ISTAT H&H 03/19/18 20:33 POC Hgb 13.6 gm/dL gm/dL (12.6-16.3) POC Hct 40 % % (38-47) Departure - Departure Disposition: Home, Routine, Self-Care Clinical Impression: Migraine-cluster headache syndrome Condition: Good Instructions: Migraine Headache (ED) Additional Instructions: 1. Please schedule a follow-up appointment with Dr. Keene. 2. Return to the emergency department for any worsening neurologic symptoms especially symptoms on one side of the body only. Referrals: Kel Bateman MD [Primary Care Provider] - As per Instructions Av Keene MD [Medical Doctor] - As per Instructions
[2018-03-19 20:34] LABS: PLATELET COUNT 233 10^3/uL (150-400)
[2018-03-19] MEDS ORDERED: LORazepam 2 MG/ML INJ ONE (21:39)
[2018-03-19] MEDS ORDERED: LORazepam 2 MG/ML INJ IVP ONE (21:41)
[2018-03-19] MEDS ORDERED: IBUPROFEN 200 MG TAB PO ONE (22:41)
[2018-03-19 22:43] VITALS: BP 154/82
== END 2018-03-19 22:53 | disposition home or self-care (01) ==
DX: G44.009 Cluster headache syndrome, unspecified, not intractable (principal); Z79.82 Long term (current) use of aspirin
CPT/HCPCS: 70450; 70551; 96374; 99285; J2060; 82435-PO; 82565-PO; 82947-PO; 84132-PO; 84295-PO; 84520-PO; 85014-PO

== ENCOUNTER → 2018-04-05 | Outpatient (CLI) | payer OTHER | LOC: FIMAGING 11:55 | PROVIDERS: ATTEND Internal Medicine | DX: Z12.31 Encounter for screening mammogram for malignant neoplasm of breast (principal) ==

== ENCOUNTER → 2018-04-13 | Outpatient (CLI) | payer OTHER | LOC: FIMAGING 13:03 | PROVIDERS: ATTEND Internal Medicine | DX: R92.8 Other abnormal and inconclusive findings on diagnostic imaging of breast (principal) ==

== ENCOUNTER → 2018-06-03 | Outpatient (CLI) | payer OTHER | LOC: FIMAGING 14:50 | PROVIDERS: ATTEND Internal Medicine | DX: M50.322 Other cervical disc degeneration at C5-C6 level (principal) ==

== ENCOUNTER → 2018-07-04 | Outpatient (CLI) | payer OTHER | LOC: FIMAGING 10:16 | PROVIDERS: ATTEND Internal Medicine | DX: R22.0 Localized swelling, mass and lump, head (principal) ==

== ENCOUNTER → 2018-11-15 | Outpatient (CLI) | payer OTHER | LOC: BHFA 11:30 | PROVIDERS: ATTEND Internal Medicine Cardiovascular Disease | DX: R07.9 Chest pain, unspecified (principal); R06.02 Shortness of breath ==

== ENCOUNTER → 2019-04-02 | Outpatient (CLI) | payer OTHER | LOC: FIMAGING 12:40 ==